=== PATIENT | male | born 1980 | race Two or more races ===

== ENCOUNTER 2017-09-06 13:46 | Emergency (ER) | payer MEDICAID ==
[~2017-09-06] VITALS: Ht 170.2 cm; Wt 67.6 kg
[~2017-09-06 13:46] MED LIST: BENADRYL25 MG ORAL; KENALOG 0.1% CR15 GM APPLIC; MEDROL DOSEPAK4 MG ORAL; NASONEX17 GM NASAL; POLYTRIM OP SOL10 ML OPHTHALM
[2017-09-06] MEDS ORDERED: Norco 5mg/325mg tab ORAL ONE (14:15)
[2017-09-06] MEDS ORDERED: Ketorolac 30mg Inj IM ONE (14:15)
--- NOTE | 2017-09-06 15:02 | Diagnostic Imaging Report ---
Indications: Reason For Exam: PAIN Technique: Spiral acquisitions obtained through the lumbar spine. Multiplanar reconstructions were generated. No IV contrast utilized. Total dose length product 346.33 mGycm. CTDIvol(s) 10.88 mGy. Dose reduction achieved using automated exposure control Comparison: none Findings: The bony alignment is normal. Dural body heights are preserved. The disc spaces are preserved. Small intravertebral endplate disc herniations are seen involving the inferior and superior endplates of L4, and a larger such abnormality is seen involving the superior endplate of L5. And L3-4, there is circumferential annular bulge. This, in combination with ligament flavum hypertrophy, results in borderline narrowing the spinal canal at this level. The neural foramina are preserved. At L4-5, there is circumferential annular bulge. This, in combination with ligamentum flavum hypertrophy results in borderline narrowing of the spinal canal. The neural foramina are preserved. At L5-S1, there is generalized circumferential annular bulge, as well as more focal subarticular and intraforaminal disc protrusion on the right. It is unclear the extent to which this compromises the neural foramen. There may be some impingement on the lateral recess from this as well. The included extra spinal soft tissues are remarkable for evidence of colonic diverticulosis. Impression: Right L5-S1 subarticular and intraforaminal disc protrusion. This may compromise the neural foramen and lateral recess. Correlate with clinical findings Other degenerative changes as detailed on a level by level basis above No acute bony trauma Incidental findings of colonic diverticulosis The CT scanner at [facility] is accredited by the [employer] and the scans are performed using protocols designed to limit radiation exposure to as low as reasonably achievable to attain images of sufficient resolution adequate for diagnostic evaluation.
--- NOTE | 2017-09-06 15:05 | Emergency Room Report ---
History of Present Illness General Chief Complaint: Back Pain-No Injury Source: Patient Present Illness HPI 37-year-old male presents ED complaining of back pain. Started last night. states that back pain started after patient came home complaining soccer. Denies any trauma or fall. Pain is a 10 out of 10, sharp, radiating down both legs. Denies any bowel or bladder incontinence. Denies any leg or motor weakness. Denies any other injuries. No other aggravating relieving factors. Denies any other associated symptoms Allergies: Coded Allergies: No Known Allergies (Unverified , 01/13/15) Patient History Past Medical History: none Past Surgical History: none Pertinent Family History: none Social History: Denies: smoking, alcohol use, drug use Immunizations: UTD Reviewed Nursing Documentation: PMH: Agreed, PSxH: Agreed Nursing Documentation-PMH Past Medical History: No Stated History Review of Systems All Other Systems: negative except mentioned in HPI Physical Exam Vital Signs Date Time Temp Pulse Resp B/P (MAP) Pulse Ox O2 Delivery O2 Flow Rate FiO2 09/06/17 13:51 79 18 131/89 95 Room Air Sp02 EP Interpretation: reviewed, normal General Appearance: alert, GCS 15, non-toxic, mild distress Head: normocephalic Eyes: bilateral eye normal inspection, bilateral eye PERRL ENT: normal ENT inspection Neck: normal inspection Respiratory: normal inspection Cardiovascular #1: normal inspection Gastrointestinal: normal inspection Rectal: deferred Genitourinary: no CVA tenderness, no vertebral tenderness Musculoskeletal: tender - paraspinal lumbar tenderness Neurologic: alert, oriented x3, responsive, motor strength/tone normal, sensory intact, speech normal Psychiatric: normal inspection Skin: normal inspection Lymphatic: normal inspection Medical Decision Making Diagnostic Impression: Primary Impression: Bulging of intervertebral disc Additional Impression: Back pain Qualified Codes: M54.42 - Lumbago with sciatica, left side; M54.41 - Lumbago with sciatica, right side ER Course Hospital Course 37-year-old M presents to ED complaining of back pain Differential diagnoses include: Fracture, dislocation, sprain, contusion Clinical course Patient placed on stretcher. After initial history and physical, I ordered pain medications and CT L spine CT L spine shows L5-S1 disk protrusion. discussed findings with patient. on reassesment pain is improved. Diagnosis - bulging of intervertebral disk, back pain Stable and discharged to home with prescription for Motrin, [place]. weight bear as tolerated. Followup with PMD. Return to ED if symptoms recur or worsen CT/MRI/US Diagnostic Results CT/MRI/US Diagnostic Results : Imaging Test Ordered: CT L spine Impression L5-S1 disk protrusion. no fx. Last Vital Signs Date Time Temp Pulse Resp B/P (MAP) Pulse Ox O2 Delivery O2 Flow Rate FiO2 09/06/17 13:51 79 18 131/89 95 Room Air Status: improved Disposition: HOME, SELF-CARE Condition: Stable Scripts Hydrocodone Bit/Acetaminophen 5-325* (NORCO 5-325*) 1 Each Tablet 1 TAB ORAL Q6H Y for For Pain, #10 TAB 0 Refills Prov: PHILLIP STEELE M.D. 09/06/17 Ibuprofen* (MOTRIN*) 600 Mg Tablet 600 MG ORAL Q8H Y for For Pain, #30 TAB 0 Refills Prov: PHILLIP STEELE M.D. 09/06/17 Referrals: NOT CHOSEN ELADIO/,REFERRING (PCP) PHILLIP STEELE M.D. Sep 06, 2017 15:05
[2017-09-06] MEDS ORDERED: NORCO 5-325 TA1 EACH ORAL (15:15)
[2017-09-06] MEDS ORDERED: IBUPROFEN600 MG ORAL (15:15)
[2017-09-06 15:16] VITALS: BP 114/72
[2017-09-06 15:17] VITALS: BP 114/72
== END 2017-09-06 15:21 | disposition home or self-care (01) ==
LOC: EMR 14:27
DX: M51.16 Intervertebral disc disorders with radiculopathy, lumbar region (principal); K57.30 Diverticulosis of large intestine without perforation or abscess without bleeding
CPT/HCPCS: 72131; 96372; 99284; J1885

== ENCOUNTER 2020-04-20 09:49 | Emergency (ER) | payer MEDICAID ==
[~2020-04-20] VITALS: Ht 172.7 cm; Wt 68.0 kg
[~2020-04-20 09:49] MED LIST changes: +IBUPROFEN600 MG ORAL; +NORCO 5-325 TA1 EACH ORAL
[2020-04-20] MEDS ORDERED: Oxymetazoline 0.05% Na Spray 30ml NASAL ONE (10:15)
--- NOTE | 2020-04-20 10:15 | Emergency Room Report ---
History of Present Illness General Chief Complaint: Pain Source: Patient Present Illness HPI The patient presents with nasal congestion and facial pain of a week's duration. He has had intermittent sinus problems for 3 years. His doctor recently started him on montelukast. He is not tolerating this - it causes burning in his stomach. He has also used Loratadine. He is also been using a steroid nasal spray. When he blows his nose, he feels leakage through his tear ducts. The pain in his face is rated 8/10. It is pressure in the front of his face and behind his eyes. There may be worsening around Spring and with the recent smoke in the air. The patient also states that he has postnasal drip and some nausea in the mornings. He sometimes has some throat discomfort in the mornings that does not persist. Patient denies exposure to COVID-19 positive contacts. No fevers, chills, chest pain, palpitations, vomiting, diarrhea, dysuria, abdominal pain, shortness of breath, joint pain, rashes, depression, anxiety, visual changes, dizziness, headache. 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 COVID-19 Screening: Negative COVID-19 COVID-19 Testing Source: march 2020 Patient History Past Medical History: see triage record Social History: Denies: smoking Reviewed Nursing Documentation: PMH: Agreed; PSxH: Agreed Nursing Documentation-PMH Past Medical History: No Stated History Review of Systems All Other Systems: negative except mentioned in HPI Physical Exam Vital Signs Date Time Temp Pulse Resp B/P (MAP) Pulse Ox O2 Delivery O2 Flow Rate FiO2 04/20/20 09:58 98.4 75 18 135/78 (97) 99 Room Air Sp02 EP Interpretation: reviewed, normal General Appearance: well appearing, no apparent distress, GCS 15, non-toxic Head: normocephalic Eyes: bilateral eye normal inspection, bilateral eye PERRL, bilateral eye EOMI ENT: normal pharynx, other - swollen L nare, congestion bilaterally Neck: normal inspection, full range of motion Respiratory: lungs clear, normal breath sounds Cardiovascular #1: regular rate, rhythm Cardiovascular #2: 2+ radial (R) Gastrointestinal: normal inspection Musculoskeletal: gait/station normal Neurologic: alert, grossly normal Psychiatric: mood/affect normal Skin: no rash, warm/dry Medical Decision Making Diagnostic Impression: Primary Impression: Allergic rhinitis Qualified Codes: J30.9 - Allergic rhinitis, unspecified ER Course Patient presents with nasal congestion and eye pain for a week while on steroids. Differential includes allergic rhinitis, allergic sinusitis, bacterial sinusitis, medication reaction amongst others. Exam is fairly classic for allergic rhinitis. Imaging and labs not indicated. The patient will be treated with a dose of Afrin and Tylenol. Patient improved with treatment. Discussed etiology and treatment plan with patient. Patient advised to follow- up with his own physician. Patient stable for outpatient observation and treatment. Last Vital Signs Date Time Temp Pulse Resp B/P (MAP) Pulse Ox O2 Delivery O2 Flow Rate FiO2 04/20/20 12:15 98.4 78 20 140/80 100 Room Air Status: improved Disposition: HOME, SELF-CARE Condition: Improved Scripts Diphenhydramine Hcl* (BENADRYL*) 25 Mg Capsule 25 MG ORAL Q6H PRN for congestion, #20 CAP Try to take only at night. Prov: Yosef Davison MD 04/20/20 Oxymetazoline HCl (Afrin) 15 Ml [place] 2 SPRAYS NASAL TWICE A DAY, #30 SPRAY Prov: Yosef Davison MD 04/20/20 Yosef Davison MD Apr 20, 2020 10:15
[2020-04-20] MEDS ORDERED: FLUTICASONE PRO16 G1 NASAL (10:24)
[2020-04-20 10:29] VITALS: BP 135/78
[2020-04-20] MEDS ORDERED: BENADRYL25 MG ORAL (12:05)
[2020-04-20] MEDS ORDERED: AFRIN NASAL SPR30 ML NASAL (12:05)
[2020-04-20 12:15] VITALS: BP 140/80
== END 2020-04-20 12:15 | disposition home or self-care (01) ==
LOC: EMR 10:10
DX: J30.9 Allergic rhinitis, unspecified (principal)
CPT/HCPCS: 99282

== ENCOUNTER 2020-05-16 03:35 | Emergency (ER) | payer MEDICAID ==
[~2020-05-16] VITALS: Ht 170.2 cm; Wt 68.0 kg
[~2020-05-16 03:35] MED LIST changes: +AFRIN NASAL SPR30 ML NASAL; +FLUTICASONE PRO16 G1 NASAL
[2020-05-16 03:46] VITALS: BP 130/81
--- NOTE | 2020-05-16 03:46 | NUR ---
ED Nurse Note: pt walked into ED from home c/o 05/11 back pain onset 2 days ago, pt denies trauma or fall and states it started after he woke up. Pt denies radiating pain.
[2020-05-16] MEDS ORDERED: HYDROCODON-ACE1 EA15 ORAL (03:53)
[2020-05-16] MEDS ORDERED: IBUPROFEN600 M1 ORAL (03:53)
[2020-05-16] MEDS ORDERED: VALIUM5 MG ORAL (03:53)
--- NOTE | 2020-05-16 03:53 | Emergency Room Report ---
History of Present Illness General Chief Complaint: Back Pain-No Injury Source: Patient Present Illness HPI This is a 40-year-old male with a history of lower back pain. He has an MRI which show herniated disc. He is scheduled for physical therapy a couple weeks from now. He presents with chief complaint of lower back pain. This is worse than before. No trauma. He woke up a few days ago with back pain. Since then has been getting stiffer and stiffer. Worse with certain movement. Better with rest. No incontinence of bowel or urine. Pain is localized to the lower lumbar area. Pain is 9 out of 10. No fever or chills. No trauma. 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 COVID-19 Screening: Negative COVID-19 COVID-19 Testing Source: 4 months ago Patient History Past Surgical History: none Pertinent Family History: none Social History: Denies: smoking Immunizations: other Reviewed Nursing Documentation: PMH: Agreed; PSxH: Agreed Nursing Documentation-PMH Past Medical History: No Stated History Review of Systems Eye: Denies: eye pain, blurred vision ENT: Denies: ear pain, nose congestion, throat swelling Respiratory: Denies: cough, shortness of breath Cardiovascular: Denies: chest pain, palpitations Gastrointestinal: Denies: abdominal pain, diarrhea, nausea, vomiting Musculoskeletal: Reports: back pain; Denies: joint pain Skin: Denies: rash Neurological: Denies: headache, numbness Endocrine: Denies: increased thirst, increased urine Hematologic/Lymphatic: Denies: easy bruising All Other Systems: negative except mentioned in HPI Physical Exam Vital Signs Date Time Temp Pulse Resp B/P (MAP) Pulse Ox O2 Delivery O2 Flow Rate FiO2 05/16/20 03:42 97.9 76 18 130/85 (100) 99 Room Air Vitals unremarkable Sp02 EP Interpretation: reviewed, normal General Appearance: well appearing, no apparent distress, alert Head: normocephalic, atraumatic Eyes: bilateral eye PERRL, bilateral eye EOMI ENT: hearing grossly normal, normal pharynx Neck: full range of motion, supple, no meningismus Respiratory: chest non-tender, lungs clear, normal breath sounds Cardiovascular #1: regular rate, rhythm, no murmur Gastrointestinal: normal bowel sounds, non tender, no mass, no organomegaly, no bruit, non-distended Musculoskeletal: normal range of motion, gait/station normal, other - Tenderness to the lower lumbar area. Around the L5 area. No anesthesia. Psychiatric: mood/affect normal Medical Decision Making Diagnostic Impression: Primary Impression: Back pain Qualified Codes: M54.5 - Low back pain ER Course Patient with lower back pain. He has MRI and CT scan documented bulging disc. No red flags in [place] equina syndrome, spinal epidural abscess or neoplastic process. Will discharge home. Last Vital Signs Date Time Temp Pulse Resp B/P (MAP) Pulse Ox O2 Delivery O2 Flow Rate FiO2 05/16/20 03:42 97.9 76 18 130/85 (100) 99 Room Air Status: improved Disposition: HOME, SELF-CARE Condition: Stable Scripts Diazepam* (VALIUM*) 5 Mg Tablet 5 MG ORAL TID PRN for back spasm, #20 TAB 0 Refills Prov: Linus Velez MD 05/16/20 Ibuprofen* (MOTRIN*) 600 Mg Tablet 600 MG ORAL Q6H PRN for For Pain, #30 TAB 0 Refills Prov: Linus Velez MD 05/16/20 Hydrocodone/Acetaminophen 5-325* (HYDROCODONE/ACETAMINOPHEN 5-325*) 1 Each Tablet 1 TAB ORAL Q6H PRN for For Pain, #30 TAB 0 Refills Prov: Linus Velez MD 05/16/20 Referrals: NON PHYSICIAN (PCP) Patient Instructions: Back Pain, Adult Additional Instructions: No heavy lifting. Follow-up with your doctor. Return if symptoms worsen. Linus Velez MD May 16, 2020 03:53
[2020-05-16] MEDS ORDERED: HYDROmorphone 1mg/ml Carpuject IM ONE ×2 (04:00→04:15)
[2020-05-16 04:32] VITALS: BP 124/75
--- NOTE | 2020-05-16 04:32 | NUR ---
ER DISCHARGE NOTE: Patient is cleared to be discharged per ERMD, pt is aox4, on room air, with stable vital signs. Pt states pain has improved currently 11/09. pt was given dc and paper prescriptions with instructions to f/u with PMD, pt was able to verbalize understanding, pt id band removed. pt is able to ambulate with steady gait. pt took all belongings.
[2020-05-16] MEDS ORDERED: ONDANSETRON ODT4 MG BC (13:08)
== END 2020-05-16 04:32 | disposition home or self-care (01) ==
LOC: EMR 03:46
DX: M54.5 Low back pain (principal)
CPT/HCPCS: 96372; J1170; Z7502; 99283

== ENCOUNTER 2020-05-16 10:57 | Emergency (ER) | payer MEDICAID ==
[~2020-05-16] VITALS: Ht 177.8 cm; Wt 68.0 kg
[~2020-05-16 10:57] MED LIST changes: +HYDROCODON-ACE1 EA15 ORAL; +IBUPROFEN600 M1 ORAL; +VALIUM5 MG ORAL
[2020-05-16 11:06] VITALS: BP 128/89
--- NOTE | 2020-05-16 11:06 | NUR ---
ED Nurse Note: Pt walked in to ED from home c/o lower back pain. Pt was seen here earlier today due to the same sx, got a morphine IM shot and got dc. Now pt is c/o headache, nausea. AAOx4, verbally responsive. No SOB, on room air.
--- NOTE | 2020-05-16 11:40 | Emergency Room Report ---
History of Present Illness General Chief Complaint: Headache Source: Patient Present Illness HPI Patient is a 40-year-old male presents for increased low back pain and headache. Had onset of symptoms after recent visit to the emergency department. Patient states he was given morphine. He reported having feeling of increased headache as well as recurrent back pain. Patient had prior history of lumbar disc disease. Had reportedly previously had MRI which showed bulging disc. Reports having some pain to the left leg. Denies any recent trauma. 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 Patient History Past Medical History: see triage record Reviewed Nursing Documentation: PMH: Agreed; PSxH: Agreed Nursing Documentation-PMH Past Medical History: No Stated History Review of Systems All Other Systems: negative except mentioned in HPI Physical Exam Vital Signs Date Time Temp Pulse Resp B/P (MAP) Pulse Ox O2 Delivery O2 Flow Rate FiO2 05/16/20 11:02 97.9 69 18 128/89 (102) 95 Room Air Sp02 EP Interpretation: reviewed, normal General Appearance: normal inspection, well appearing, no apparent distress, alert, GCS 15 Head: atraumatic ENT: normal ENT inspection, hearing grossly normal, normal voice Neck: normal inspection, full range of motion, supple, no bony tend Respiratory: normal inspection, lungs clear, normal breath sounds, no respiratory distress, no retraction, no wheezing Cardiovascular #1: regular rate, rhythm, no edema Gastrointestinal: normal inspection, normal bowel sounds, non tender, soft, no guarding, no hernia Genitourinary: no CVA tenderness Musculoskeletal: normal inspection, back normal, normal range of motion Neurologic: alert, motor strength/tone normal, 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 Differential diagnosis include was not limited to viral syndrome, pancreatitis, sciatica among others. Patient's laboratory testing was unremarkable. He was noted to have some mild headache. Had a CT of the head read by radiology showed minimal sinus disease without evidence of acute intracranial hemorrhage. Patient is given medications for symptomatic management. Patient previously been prescribed medications for pain and he was advised to take these medications. The patient is advised to follow up with primary care doctor in 1-2 days. Patient is advised to return if any worsening condition or if any changes in status that are concerning. This report is dictated with [employer]oot respiratory practitioner software which may occasionally lead to discrepancies related to use of this software. Labs Test 05/16/20 12:02 White Blood Count 8.9 K/UL (4.8-10.8) Red Blood Count 5.58 M/UL (4.70-6.10) Hemoglobin 16.5 G/DL (14.2-18.0) Hematocrit 44.8 % (42.0-52.0) Mean Corpuscular Volume 80 FL (80-99) Mean Corpuscular Hemoglobin 29.6 PG (27.0-31.0) Mean Corpuscular Hemoglobin Concent 36.9 G/DL (32.0-36.0) Red Cell Distribution Width 10.6 % (11.6-14.8) Platelet Count 208 K/UL (150-450) Mean Platelet Volume 7.3 FL (6.5-10.1) Neutrophils (%) (Auto) 70.3 % (45.0-75.0) Lymphocytes (%) (Auto) 19.8 % (20.0-45.0) Monocytes (%) (Auto) 5.8 % (1.0-10.0) Eosinophils (%) (Auto) 3.2 % (0.0-3.0) Basophils (%) (Auto) 0.8 % (0.0-2.0) Urine Color Yellow Urine Appearance Clear Urine pH 5 (4.5-8.0) Urine Specific [place] 1.025 (1.005-1.035) Urine Protein Negative (NEGATIVE) Urine Glucose (UA) Negative (NEGATIVE) Urine Ketones Negative (NEGATIVE) Urine Blood 4+ (NEGATIVE) Urine Nitrite Negative (NEGATIVE) Urine Bilirubin Negative (NEGATIVE) Urine Urobilinogen Normal MG/DL (0.0-1.0) Urine Leukocyte Esterase Negative (NEGATIVE) Urine RBC 5-10 /HPF (0 - 0) Urine WBC 0-2 /HPF (0 - 0) Urine Squamous Epithelial Cells Occasional /LPF Urine Bacteria Few /HPF (NONE) Urine Mucus Moderate /LPF (NONE/OCC) Sodium Level 139 MMOL/L (136-145) Potassium Level 4.6 MMOL/L (3.5-5.1) Chloride Level 103 MMOL/L (98-107) Carbon Dioxide Level 29 MMOL/L (21-32) Anion Gap 7 mmol/L (5-15) Blood Urea Nitrogen 18 mg/dL (7-18) Creatinine 0.9 MG/DL (0.55-1.30) Estimat Glomerular Filtration Rate > 60 mL/min (>60) Glucose Level 108 MG/DL (74-106) Calcium Level 8.7 MG/DL (8.5-10.1) Total Bilirubin 0.8 MG/DL (0.2-1.0) Aspartate Amino Transf (AST/SGOT) 26 U/L (15-37) Alanine Aminotransferase (ALT/SGPT) 51 U/L (12-78) Alkaline Phosphatase 71 U/L (46-116) Total Protein 7.6 G/DL (6.4-8.2) Albumin 4.3 G/DL (3.4-5.0) Globulin 3.3 g/dL Albumin/Globulin Ratio 1.3 (1.0-2.7) Lipase 184 U/L (73-393) Urine Opiates Screen Negative (NEGATIVE) Urine Barbiturates Screen Negative (NEGATIVE) Phencyclidine (PCP) Screen Negative (NEGATIVE) Urine Amphetamines Screen Negative (NEGATIVE) Urine Benzodiazepines Screen Negative (NEGATIVE) Urine Cocaine Screen Negative (NEGATIVE) Urine Marijuana (THC) Screen Negative (NEGATIVE) Serum Alcohol < 3 mg/dL Last Vital Signs Date Time Temp Pulse Resp B/P (MAP) Pulse Ox O2 Delivery O2 Flow Rate FiO2 05/16/20 11:06 97.9 69 18 128/89 95 Room Air Status: improved Disposition: HOME, SELF-CARE Condition: Stable Scripts Ondansetron Odt* (ZOFRAN ODT*) 4 Mg Tab.rapdis 4 MG BC EVERY 8 HOURS, #10 TAB 0 Refills Prov: El Vaughn MD 05/16/20 Referrals: NOT CHOSEN IPA/,REFERRING (PCP) El Vaughn MD May 16, 2020 11:40
[2020-05-16] MEDS ORDERED: DiphenhydrAMINE 50mg/ml Inj IVP ONE (11:45)
[2020-05-16] MEDS ORDERED: Ketorolac 30mg Inj IV ONE (11:45)
[2020-05-16] MEDS ORDERED: Metoclopramide 10mg/2ml Inj IVP ONE (11:45)
--- NOTE | 2020-05-16 12:18 | Diagnostic Imaging Report ---
EXAM: CT CT Head no Contrast INDICATION: Headache. TECHNIQUE: Axial images of the brain were obtained with subsequent sagittal and coronal reformats. All CT scans at this facility are performed using dose modulation techniques as appropriate to a performed exam including the following: automated exposure control with adjustment of the mA and/or kV according to patient size. COMPARISON STUDY: None. RADIATION DOSE: CTDIvol: 53.4 mGy DLP: 1072.2 mGy-cm Dose information generated by the CT scanner is available in PACS. FINDINGS: There is normal symmetry and normal caicedo-white differentiation. There is no acute large territory cortical infarct, hemorrhage, mass effect or shift. Ventricles and cisterns as well as brainstem and posterior fossa appear unremarkable. The [place] region is normal. Small amount of scattered fluid noted in the ethmoid air cells. Bony calvarium is intact. IMPRESSION: NO ACUTE INTRACRANIAL ABNORMALITY. MILD SINUS DISEASE.
[2020-05-16 12:26] LABS: APPEARANCE,URINE CLEAR; BASOPHILS % (AUTO) 0.8 % (0.0-2.0); BILIRUBIN, URINE NEGATIVE (NEGATIVE); EOSINOPHILS % (AUTO) 3.2 % (0.0-3.0); GLUCOSE, URINE (UA) NEGATIVE (NEGATIVE); HEMATOCRIT 44.8 % (42.0-52.0); HEMOGLOBIN 16.5 G/DL (14.2-18.0); KETONES,URINE NEGATIVE (NEGATIVE); LEUKOCYTE ESTERASE ,URINE NEGATIVE (NEGATIVE); LYMPHOCYTES % (AUTO) 19.8 % (20.0-45.0); MEAN CORPUSCULAR VOLUME 80 FL (80-99); MONOCYTES % (AUTO) 5.8 % (1.0-10.0); NEUTROPHILS % (AUTO) 70.3 % (45.0-75.0); NITRITE,URINE NEGATIVE (NEGATIVE); PH,URINE 5 (4.5-8.0); PLATELET COUNT 208 K/UL (150-450); PROTEIN,URINE NEGATIVE (NEGATIVE); RED BLOOD COUNT 5.58 M/UL (4.70-6.10); RED CELL DISTRIBUTION WIDTH 10.6 % (11.6-14.8); UROBILINOGEN,URINE NORMAL MG/DL (0.0-1.0); WHITE BLOOD COUNT 8.9 K/UL (4.8-10.8)
[2020-05-16 12:32] LABS: COLOR,URINE YELLOW
[2020-05-16 12:38] LABS: ANION GAP 7 mmol/L (5-15); BLOOD UREA NITROGEN 18 mg/dL (7-18); CALCIUM 8.7 MG/DL (8.5-10.1); CARBON DIOXIDE 29 MMOL/L (21-32); CHLORIDE 103 MMOL/L (98-107); CREATININE 0.9 MG/DL (0.55-1.30); POTASSIUM 4.6 MMOL/L (3.5-5.1); SODIUM 139 MMOL/L (136-145)
[2020-05-16 12:42] LABS: ALANINE AMINOTRANSFERASE 51 U/L (12-78); ALBUMIN 4.3 G/DL (3.4-5.0); ALBUMIN/GLOBULIN RATIO 1.3 (1.0-2.7); ALKALINE PHOSPHATASE 71 U/L (46-116); ASPARTATE AMINO TRANSFERASE 26 U/L (15-37); BILIRUBIN,TOTAL 0.8 MG/DL (0.2-1.0)
[2020-05-16] MEDS ORDERED: ONDANSETRON ODT4 MG BC (13:08)
[2020-05-16 13:14] VITALS: BP 128/89
--- NOTE | 2020-05-16 13:15 | NUR ---
ER DISCHARGE NOTE: Patient is cleared to be discharged per ERMD, pt is aox4, on room air, with stable vital signs. pt was given dc and prescription instructions, pt was able to verbalize understanding, pt id band and iv site removed without complications. pt is able to ambulate with steady gait. pt took all belongings.
== END 2020-05-16 13:15 | disposition home or self-care (01) ==
LOC: EMR 11:30
DX: M51.86 Other intervertebral disc disorders, lumbar region (principal)
CPT/HCPCS: 36415; 70450; 80053; 80307; 81001; 83690; 85025; 96361; 96374; 96375; G0480; J1200; J1885; J2765; J7030; Z7502; 99284